=== PATIENT | male | born 1940 | race Hispanic/Latino ===

== ENCOUNTER 2016-10-06 06:56 | Day surgery (SDC) | payer MEDICARE, BC ==
[2016-09-27 08:07] VITALS: BMI 27.3
[2016-10-06] MEDS ORDERED: Lidocaine 2% Inj (20ml) ONE (08:35)
[2016-10-06] MEDS ORDERED: Propofol 10 mg/ml Inj (20 ML) ONE (08:38)
[2016-10-06] MEDS ORDERED: Lactated Ringer's 1,000 ML IV SCH (09:54)
[2016-10-06 10:41] VITALS: PULSE 51; RESP 17; TEMP 97.5; O2SAT 97
[2016-10-06 11:05] VITALS: BP 138/82
== END 2016-10-06 11:21 | disposition home or self-care (01) ==
LOC: ENDO 06:56
PROVIDERS: ATTEND Internal Medicine Gastroenterology
DX: K22.2 Esophageal obstruction (principal); K44.9 Diaphragmatic hernia without obstruction or gangrene; K29.70 Gastritis, unspecified, without bleeding; K29.80 Duodenitis without bleeding; K21.9 Gastro-esophageal reflux disease without esophagitis; R13.10 Dysphagia, unspecified
CPT/HCPCS: 43239; 88305; 88312; 88342; J2704; J7040; J7120